=== PATIENT | female | born 1945 | race Caucasian/White ===

== ENCOUNTER 2016-04-12 16:04 | Emergency (ER) | payer OTHER, MEDICARE ==
[2016-04-12] MEDS ORDERED: HYDROmorphONE/DILAUDID 1 MG/ML SYR IVP ONE ×3 (17:02→19:02)
[2016-04-12] MEDS ORDERED: DEXAMETHASONE VARIABLE DOSE IVP/PO ONE (17:03)
--- NOTE | 2016-04-12 17:05 | EDPHY ---
H & P Stated Complaint: Slipped in tub yesterday;now w/exacerbation of back pain/ sciatica Time Seen by Provider: 04/12/16 16:50 HPI/ROS: CHIEF COMPLAINT: Low back pain radiating down both legs HISTORY OF PRESENT ILLNESS: The patient is a 70-year-old female with a history of chronic low back pain. She was seen by [facility] several years ago and was given a dose of steroids and followed up with physical therapy and alternative practitioners . She has never had any surgeries or procedures. She is not currently on any medications. She states that she was in her normal status of chronic back pain until last night when she slipped in the shower. She did not fall down but she caught herself on the handrail and had a "jolt". She has had severe pain radiating down the back of both legs ever since. She states that hurts too bad to walk but she is able to move her legs. Normal sensation. No bowel or bladder abnormalities. REVIEW OF SYSTEMS: Constitutional: denies: chills, fever, recent illness, recent injury EENTM: denies: blurred vision, double vision, nose congestion Respiratory: denies: cough, shortness of breath Cardiac: denies: chest pain, irregular heart rate, lightheadedness, palpitations Gastrointestinal/Abdominal: denies: abdominal pain, diarrhea, nausea, vomiting, blood streaked stools Genitourinary: denies: dysuria, frequency, hematuria, pain Musculoskeletal: See HPI Skin: denies: lesions, rash, jaundice, bruising Neurological: denies: headache, numbness, paresthesia, tingling, dizziness, weakness Hematologic/Lymphatic: denies: blood clots, easy bleeding, easy bruising Immunologic/allergic: denies: HIV/AIDS, transplant EXAM: GENERAL: Well-appearing, well-nourished and in no acute distress. HEAD: Atraumatic, normocephalic. EYES: Pupils equal round and reactive to light, extraocular movements intact, sclera anicteric, conjunctiva are normal. ENT: TMs normal, nares patent, oropharynx clear without exudates. Moist mucous membranes. NECK: Normal range of motion, supple without lymphadenopathy or JVD. LUNGS: Breath sounds clear to auscultation bilaterally and equal. No wheezes rales or rhonchi. HEART: Regular rate and rhythm without murmurs, rubs or gallops. ABDOMEN: Soft, nontender, normoactive bowel sounds. No guarding, no rebound. No masses appreciated. BACK: No CVA tenderness, no spinal tenderness, step-offs or deformities EXTREMITIES: Pain down posterior lower legs bilaterally, Normal range of motion , no pitting or edema. No clubbing or cyanosis. No contusion or abrasions NEUROLOGICAL: Cranial nerves II through XII grossly intact. Normal speech, normal gait. 5/5 strength, normal movement in all extremities, normal sensation , normal reflexes PSYCH: Normal mood, normal affect. SKIN: Warm, dry, normal turgor, no visible rashes or lesions. Source: Patient Exam Limitations: No limitations - Personal History Current Tetanus Diphtheria and Acellular Pertussis (TDAP): Yes - Medical/Surgical History Hx Asthma: No Hx Chronic Respiratory Disease: No Hx Diabetes: Yes Hx Cardiac Disease: No Hx Renal Disease: No Hx Cirrhosis: No Hx Alcoholism: No Other PMH: Intestinal bypass 1974. Hysterectomy/has ovaries. carpal tunnel sugery rt. Scopes on knees. Brain injury. T and A - Family History Significant Family History: No pertinent family hx - Social History Smoking Status: Never smoked Alcohol Use: None Drug Use: None Constitutional: Initial Vital Signs Temperature (C) 37 C 04/12/16 16:10 Heart Rate 107 H 04/12/16 16:10 Respiratory Rate 18 04/12/16 16:10 Blood Pressure 161/108 H 04/12/16 16:10 O2 Sat (%) 93 04/12/16 16:10 O2 Delivery Mode Room Air O2 (L/minute) 2 Allergies/Adverse Reactions: amoxicillin [Amoxicillin] Allergy (Mild, Verified 04/12/16 16:17) GI Home Medications: Medication Instructions Recorded Cyclobenzaprine [Flexeril 10 MG 10 mg PO 04/12/16 (*)] Insulin 70/30 Human [Novolin 70/30 1 unit SC 04/12/16 (*)] Pantoprazole Sodium [Protonix 40mg 40 mg PO 04/12/16 (*)] Thyroid [[place] Thyroid 60 MG (*)] 60 mg PO DAILY10 04/12/16 methylPREDNISolone [Medrol Dose 1 each PO AD #1 ea 04/12/16 Bob] oxyCODONE/APAP 5/325 [Percocet 1 - 2 tab PO Q4-6PRN PRN #14 tab 04/12/16 5/325 (RX)] Medical Decision Making - Diagnostics Imaging: Results: MRI scan of the lumbar spine was obtained. The results of the study are positive for L5-S1 disc herniation predominantly to the right. Multilevel facet degeneration, no sign of spinal cord compression or cauda equina. The study was read by Dr. Gigi King. I viewed the images myself on the PACS system. ED Course/Re-evaluation: 7:03 p.m. we discussed the patient's MRI results. She is feeling much better after Dilaudid and steroids. I will discharge her with Percocet and steroid taper until she can follow up with her spinal surgeons. She has an appointment on Thursday. She is ambulatory here in the emergency department. She declines further workup or testing at this time. Differential Diagnosis: Partial list of the Differential diagnosis considered include but were not limited to; sciatica, spinal cord compression, cauda equina and although unlikely based on the history and physical exam, I also considered infection, fracture. I discussed these differential diagnoses and the plan with the patient as well as the usual and expected course. The patient understands that the diagnosis is provisional and that in medicine we are not always correct and that further workup is often warranted. Usual and customary warnings were given. All of the patient's questions were answered. The patient was instructed to return to the emergency department should the symptoms at all worsen or return, otherwise to followup with the physician as we discussed. - Data Points Medications Given: Discontinued Medications Dexamethasone Sodium Phosphate (Decadron) 10 mg IVP/PO EDNOW ONE Stop: 04/12/16 17:04 Last Admin: 04/12/16 17:23 Dose: 10 mg Hydromorphone HCl (Dilaudid) 1 mg IVP EDNOW ONE Stop: 04/12/16 17:03 Last Admin: 04/12/16 17:23 Dose: 1 mg Hydromorphone HCl (Dilaudid) 1 mg IVP EDNOW ONE Stop: 04/12/16 17:04 Last Admin: 04/12/16 17:24 Dose: Not Given Hydromorphone HCl (Dilaudid) 1 mg IVP EDNOW ONE Stop: 04/12/16 19:03 Last Admin: 02/18/17 19:22 Dose: 1 mg Oxycodone/Acetaminophen (Percocet 5/325mg Prepack#4) 1 btl TAKEHOME EDNOW ONE Stop: 04/12/16 19:06 Last Admin: 04/12/16 19:30 Dose: 1 btl Departure - Departure Disposition: Home, Routine, Self-Care Clinical Impression: Sciatica associated with disorder of lumbar spine Condition: Fair Instructions: Lumbar Radiculopathy (ED) Referrals: NONE *PRIMARY CARE P,. [Primary Care Provider] - As per Instructions [facility] [Outside] - As per Instructions Prescriptions: methylPREDNISolone [Medrol Dose Bob] 1 each PO AD #1 ea oxyCODONE/APAP 5/325 [Percocet 5/325 (RX)] 1 - 2 tab PO Q4-6PRN PRN #14 tab PRN Reason: Pain
[2016-04-12] MEDS ORDERED: DEXAMETHASONE 4 MG TAB ONE (17:17)
[2016-04-12] MEDS ORDERED: OXYCODONE/APAP 5/325MG PREPACK#4 BTL TAKEHOME ONE (19:05)
[2016-04-12 20:10] VITALS: BP 130/78; PULSE 70; RESP 14; TEMP 97.9; O2SAT 94
== END 2016-04-12 20:08 | disposition home or self-care (01) ==
DX: M54.40 Lumbago with sciatica, unspecified side (principal); E11.9 Type 2 diabetes mellitus without complications
CPT/HCPCS: 72148; 96374; 96376; 99285; J1170